=== PATIENT | male | born 1955 | race Caucasian/White ===

== ENCOUNTER → 2023-09-25 08:37 | Outpatient (REF) | payer MEDICARE, OTHER, SELFPAY | LOC: RAD 08:37 | PROVIDERS: ATTENDING PHYSICIAN Nurse Practitioner Family | DX: Z13.6 Encounter for screening for cardiovascular disorders (principal); Z79.52 Long term (current) use of systemic steroids | CPT/HCPCS: 76770; 77080 ==

== ENCOUNTER 2023-12-17 08:38 | Emergency (ER) | payer MEDICARE, OTHER, SELFPAY ==
[2023-12-17] VITALS (8 sets, daily range): BP systolic 122–150; BP diastolic 83–100; BMI 29.6
[2023-12-17 08:43] LABS: Glucose - Point of Care 127 mg/dl (70-99)
--- NOTE | 2023-12-17 08:53 | EDRN ---
Cong BARKLEY in room w/ pt at this time.
--- NOTE | 2023-12-17 09:03 | ED.GENMED ---
History of Present Illness
<FILIPPO Ballesteros - Last Filed: 12/17/23 14:35>
General
Chief Complaint: Visual Problem
Source: patient
Exam Limitations: none
Time Seen by Provider: 12/17/23 08:48
Nursing documentation reviewed up to this point in time: agreed with
History of Present Illness
History of Present Illness:
Patient is a 68-year-old male with past medical history of polymyalgia rheumatica high cholesterol presents to the ER for evaluation. He reports that 8 AM this morning he felt a sudden pain behind his left eye almost like he was' hit in the eye'
and at the same time noticed he had double vision. He was nauseous with this and sweaty. He reports since then his double vision has improved however he does still have pain behind the eye. He is nauseous. Minimally light-sensitive. He tells me
he had had ocular migraines recently but this is never been formally diagnosed. This normally however starts with seeing a dot in his visual field.
He is not on blood thinners. He denies any associated upper or lower extremity numbness tingling weakness. He denies any speech difficulty.
Past History
<FILIPPO Ballesteros - Last Filed: 12/17/23 14:35>
Past History
ED Past Medical History: GERD
ED Past Surgical History: Orthopedic (Lamenectomy)
Social History
Tobacco: Non-smoker
Alcohol: Occasional
Personal:
Living: with family
Family History
Family History: CAD
Review of Systems
<FILIPPO Ballesteros - Last Filed: 12/17/23 14:35>
Review of Systems
Allergies reviewed?: Yes
All Other Systems: ROS reviewed and negative except as documented in HPI and ROS
Constitutional: Reports no symptoms
EENT: Reports other (Pain behind left eye, double vision. Double vision has since resolved)
Respiratory: Reports no symptoms
Cardiac: Reports no symptoms
ABD/GI: Reports nausea
: Reports no symptoms
Musculoskeletal: Reports no symptoms
Skin: Reports no symptoms
Neurological: Reports headache; Denies dizzy, weakness or numbness
Psychiatric: Reports no symptoms
Phy Exam
<FILIPPO Ballesteros - Last Filed: 12/17/23 14:35>
General Physical Exam
General Presentation: no apparent distress
General age: appears stated age
General Skin: warm and dry
General Habitus: normal
General Mental: alert
General Hydration: appears well hydrated
ENT Exam
ENT Exam: EOMI, neck supple and other (No ocular palsy)
Eye Exam
Eye Exam: PERRL, EOMI and other (Minimal injection to left eye )
Eye Exam General: PERRL: bilateral and EOM intact: bilateral
Pupil Exam: Bilateral: round and reactive
Cardiovascular Exam
Cardiovascular Exam: regular rate/rhythm, no murmur and normal peripheral pulses
Pulmonary Exam
Pulmonary Exam: lungs clear and no respiratory distress
Neurological Exam
Neurological Exam: alert, oriented x3, no motor deficits and no sensory deficits
NIH Stroke Score
Level of Consciousness: 0 - Alert
LOC questions: 0-Answers both correctly
LOC Commands: 0-Performs both correctly
Best Gaze: 0-Normal
Visual [place]: 0=Normal, no visual loss
Facial palsy: 0=Normal, symmetrical
Motor - Right Arm: 0=No drift 10 seconds
Motor - Left Arm: 0=No drift 10 seconds
Motor - Right Le-No drift 5 seconds
Motor - Left Le-No drift 5 seconds
Limb Ataxia: 0-Absent
Sensation: 0-Normal
Best Language: 0-No aphasia
Dysarthria: 0-Normal
Extinction and Inattention: 0-No abnormality
Total Score:: 0
[place] Coma Scale
Eye Opening: Spontaneous
Verbal Response: Oriented
Motor Response: Obeys Commands
GCS Total Score: 15
Cerebellar
Cerebellar Function: normal finger to nose
Musculoskeletal Exam
Musculoskeletal Exam: full ROM
Skin Exam
Skin Exam: normal color and warm/dry
Psychiatric Exam
Psychiatric Exam: normal mood/affect
<Nadeem Monreal MD - Last Filed: 12/17/23 16:39>
NIH Stroke Score
Total Score:: 0
[place] Coma Scale
GCS Total Score: 15
Course
<FILIPPO Ballesteros - Last Filed: 12/17/23 14:35>
Orders/Labs/Results
Orders:
Orders
12/17/23 09:02
CT Head W/o Iv Contrast Urgent
Comment:
Reason For Exam: pain behind left eye double vision
12/17/23 09:03
Electrocardiogram (*1) Stat
Reason for Study: Abdominal Pain
Cardiac Monitoring- Treatment ONCE
EKG- Treatment ONCE
IV Insert/Care/Rem.- Treatment PRN
Ondansetron Injectable [Zofran] 4 mg IV NOW STA
12/17/23 09:12
C-Reactive Protein Urgent
Comment: ADD ON
Complete Blood Count/With Diff Urgent
Comprehensive Metabolic Panel Urgent
Sedimentation Rate [Erythrocyte Sed Rate] Urgent
12/17/23 09:51
Valproate Sodium [Depacon] 500 mg 0.9% Sodium Chloride 50 ml [Nss] 50 ml IV NOW
12/17/23 09:58
Ketorolac [Toradol] 15 mg IV NOW STA
Valproate Sodium [Depacon] 1,000 mg 0.9% Sodium Chloride 50 ml [Nss] 50 ml IV NOW
12/17/23 10:56
Add On- LAB Urgent
Comments:: tube in lab
Tests Added?: CRP (C reactive protien)
12/17/23 11:00
MethylPREDNISolone. [Solu-Medrol] 500 mg 0.9% Sodium Chloride 100 ml [Nss] 100 ml IV ONCE
12/17/23 12:26
Visual Acuity- Treatment ONCE
Abnormal Lab Results
12/17/23 12/17/23
08:41 09:12
MCH 32.2 H pg
(27.0-31.0)
ESR 21 H mm/hour
(0-20)
Glucose 127 H mg/dl
(70-99)
POC Glucose 127 H mg/dl
(70-99)
12/17/23 09:12
12/17/23 09:12
Vital Signs
Initial and Last Documented VS:
Initial Vital Signs
Temp Pulse Resp BP Pulse Ox
97.7 F 68 18 150/94 98
12/17/23 08:44 12/17/23 08:44 12/17/23 08:44 12/17/23 08:44 12/17/23 08:44
Last Documented Vital Signs
Temp Pulse Resp BP Pulse Ox
97.7 F 69 17 144/90 93
12/17/23 08:44 12/17/23 14:15 12/17/23 14:15 12/17/23 14:00 12/17/23 14:15
Director Of Digital Technology consulted with Physician
Director Of Digital Technology consulted with physician?: Yes
Name of Physician Consulted: Jocelin
<Nadeem Monreal MD - Last Filed: 12/17/23 16:39>
Orders/Labs/Results
Orders:
Orders
12/17/23 09:02
CT Head W/o Iv Contrast Urgent
Comment:
Reason For Exam: pain behind left eye double vision
12/17/23 09:03
Electrocardiogram (*1) Stat
Reason for Study: Abdominal Pain
Cardiac Monitoring- Treatment ONCE
EKG- Treatment ONCE
IV Insert/Care/Rem.- Treatment PRN
Ondansetron Injectable [Zofran] 4 mg IV NOW STA
12/17/23 09:12
C-Reactive Protein Urgent
Comment: ADD ON
Complete Blood Count/With Diff Urgent
Comprehensive Metabolic Panel Urgent
Sedimentation Rate [Erythrocyte Sed Rate] Urgent
12/17/23 09:51
Valproate Sodium [Depacon] 500 mg 0.9% Sodium Chloride 50 ml [Nss] 50 ml IV NOW
12/17/23 09:58
Ketorolac [Toradol] 15 mg IV NOW STA
Valproate Sodium [Depacon] 1,000 mg 0.9% Sodium Chloride 50 ml [Nss] 50 ml IV NOW
12/17/23 10:56
Add On- LAB Urgent
Comments:: tube in lab
Tests Added?: CRP (C reactive protien)
12/17/23 11:00
MethylPREDNISolone. [Solu-Medrol] 500 mg 0.9% Sodium Chloride 100 ml [Nss] 100 ml IV ONCE
12/17/23 12:26
Visual Acuity- Treatment ONCE
Abnormal Lab Results
12/17/23 12/17/23
08:41 09:12
MCH 32.2 H pg
(27.0-31.0)
ESR 21 H mm/hour
(0-20)
Glucose 127 H mg/dl
(70-99)
POC Glucose 127 H mg/dl
(70-99)
12/17/23 09:12
12/17/23 09:12
Vital Signs
Initial and Last Documented VS:
Initial Vital Signs
Temp Pulse Resp BP Pulse Ox
97.7 F 68 18 150/94 98
12/17/23 08:44 12/17/23 08:44 12/17/23 08:44 12/17/23 08:44 12/17/23 08:44
Last Documented Vital Signs
Temp Pulse Resp BP Pulse Ox
97.7 F 69 17 144/90 93
12/17/23 08:44 12/17/23 14:15 12/17/23 14:15 12/17/23 14:00 12/17/23 14:15
<FILIPPO Ballesteros - Last Filed: 12/17/23 14:35>
MDM/Problems Addressed
MDM/Problems Addressed:
Patient is a 68-year-old male who presents with sudden onset of pain behind his left eye with associated double vision. Patient arrived to the awake alert his double vision has improved and has no double vision on exam but does complain of a
headache behind his left eye and light sensitivity. He does have a history of migraines. He has no visual field deficit on exam no eye palsy bilaterally patient with normal finger-nose clear speech no facial droop no upper or lower extremity
numbness, tingling weakness no neurological deficits. Case discussed with Dr. Monreal Patient evaluated by neurologist CAT scan negative neurology does recommend treat with methylprednisone 500 mg and Depakote 1000 mg for migraine.
1400:Patient feeling much better. Neurology back to reassess patient. As discussed with neurology will give a prescription for Depakote 500 mg to take once as needed for migraines Will d/c with outpt neuro f/u.
<FILIPPO Ballesteros - Last Filed: 12/17/23 14:35>
*Radiology
Radiology exam reviewed: radiology read reviewed
*Pulse Oximetry
Patient hypoxic: no
*EKG
Interpreted by ED Provider?: Yes
Comparison EKG: no comparison EKG present
Heart Rate: 61
Rate: normal
Rhythm: sinus
Ischemia: no ischemia
*Critical Care Note
Total Time (30-74mins, 75-104mins- exclusive of procedures): Not Applicable
<FILIPPO Ballesteros - Last Filed: 12/17/23 14:35>
Patient Management
Discussion with other providers: Statistical Assistant (DR Henok Toussaint )
ED Attending Note
<FILIPPO Ballesteros - Last Filed: 12/17/23 14:35>
-
Portions of this chart may have been created with voice recognition software.� Occasional wrong word or��sound alike� substitutions may have occurred due to the inherent limitations of voice recognition software.
<Nadeem Monreal MD - Last Filed: 12/17/23 16:39>
ED Attending Note
Patient seen and examined by attending physician: Yes
ED Attending Note:
Patient presents to ED secondary to sudden onset of left eye pain, headache, along with nausea sensation this morning. Patient does have history of previous 'ocular migraine', but states that he does not often get headache. Along with eye pain and
headache, patient is reporting intermittent double vision, which now has resolved at the time of evaluation in the ED. Denies fever or chills. Denies dizziness. Denies loss of sensation or weakness. Denies difficulty with speech. Denies trauma.
Denies recent illness. Denies recent change in medications or diet.
Physical Exam
General: mild painful distress, not acutely ill. afebrile
Head: nc/at. eomi. no nystagmus.
Neck: supple. no meningeal signs.
Heart: s1/s2 regular rate and rhythm, no murmur. equal radial pulses.
Lungs: no acute respiratory distress. clear bilaterally
Abdomen: normal bowel sounds. not tender.
Neuro: alert and oriented. no focal neurological deficits
Skin: no rash
Psychiatric: well kept. interactive and cooperative
Extremities: no edema. no calf tenderness.
CT head: NAD.
Patient evaluated in ED by Dr. Toussaint, neurology. Recommends treatment with medications, i.e. Solu-Medrol/Depakote.
After treatment, patient reports significant warning symptoms. Patient re-evaluated by neurology, and outpatient follow-up arranged prior to discharge. Patient otherwise is afebrile, hemodynamically stable, and neurologically intact, at time of
discharge, to the care of his family.
Discharge Plan
Departure
Patient Disposition: Home (Routine Discharge)
Date of Disposition: 12/17/23
Time of Disposition: 14:23
Patient with high blood pressure during this ER visit?: Yes
Condition: Fair
Covid-19: Not Applicable
Discharge Problem:
Migraine
Instructions: Migraines (DC)
Prescriptions:
New
divalproex [Depakote] 500 mg tablet,delayed release (DR/EC)
500 mg PO ONCE PRN (Reason: headache) Qty: 14 0RF
No Action
prednisone 20 MG tablet
40 mg PO DAILY Qty: 10 0RF
ondansetron 4 MG tablet,disintegrating
4 mg PO TIDPRN PRN (Reason: spasm) Qty: 9 0RF
famotidine 20 MG tablet
20 mg PO BID Qty: 28 0RF
Rx Instructions:
Take 20 mg twice a day for 14 days
ascorbic acid (vitamin C) [Vitamin C] 500 MG tablet
1,000 mg PO BID Qty: 56 0RF
Rx Instructions:
Take 1,000 mg twice a day for 14 days
aspirin 81 MG tablet,chewable
81 mg PO DAILY Qty: 14 0RF
Rx Instructions:
Take 81 mg daily for 14 days
zinc sulfate 220 MG capsule
220 mg PO DAILY Qty: 14 0RF
Rx Instructions:
Take 220 mg daily for 14 days
cholecalciferol (vitamin D3) 1,000 UNITS tablet
2,000 units PO DAILY Qty: 28 0RF
Rx Instructions:
Take 2,000 units daily for 14 days
melatonin 5 MG tablet
5 mg PO HS Qty: 14 0RF
Rx Instructions:
Take 5 mg daily at bedtime for 14 days
Referrals:
Ahmet Jiménez CRNP [Family Provider] -
Henok Toussaint MD [Active] -
Activity Restrictions/Additional Instructions:
As discussed you were given a prescription for Depakote 500 mg to take once as needed for headache. Follow-up closely with family doctor next 2 days as well as neurology. Return if any worsening of symptoms.
Interventions
Interventions:
*Risk Screen - Suicide Last Done: 12/17/23 08:44
*General Assessment Last Done: 12/17/23 08:44
*Neglect/Abuse Screening Last Done: 12/17/23 08:44
ED- Fall Risk Assessment Last Done: 12/17/23 10:07
*ED COVID-19 Vaccine History Last Done: 12/17/23 14:59
*Nursing Disposition Last Done: 12/17/23 14:59
ED- Neurological Assessment Last Done: 12/17/23 12:27
ED-EENT Assessment Last Done: 12/17/23 09:52
ED Swallowing Screen Last Done: 12/17/23 12:28
Discharge Date and Time
Discharge Date/Time: 12/17/23 15:00
Print Language: EGYPTIAN
[2023-12-17] MEDS: ZOFRAN 4 MG IV (09:11)
[2023-12-17 09:30] LABS: % Basophils 1.2 % (0-2); % Eosinophils 3.9 % (0-6); % Immature Granulocytes 0.5 % (0-0.5); % Lymphocytes 30.9 % (20.5-51.1); % Monocytes 8.6 % (1.7-9.3); % Neutrophils 54.9 % (42.2-75.2); Absolute Basophils 0.1 10^3/uL (0-0.2); Absolute Eosinophils 0.3 10^3/uL (0-0.7); Absolute Lymphocytes 2.1 10^3/uL (1.2-3.4); Absolute Monocytes 0.6 10^3/uL (0.1-0.6); Absolute Neutrophils 3.7 10^3/uL (1.4-6.5); Hematocrit 43.1 % (39.0-52.0); Hemoglobin 15.6 g/dL (13.0-18.0); Mean Corp Hgb Conc. 36.2 g/dL (33.0-37.0); Mean Corpuscular Hgb 32.2 pg (27.0-31.0); Mean Platelet Volume 9.2 fL (7.4-10.4); Nucleated Red Blood Cells % 0 % (-); Platelet Count 227 10^3/uL (130-400); Red Blood Cell Count 4.84 10^6/uL (4.70-6.10); Red Cell Dist. Width 12.5 % (11.5-14.5); White Blood Cell Count 6.7 10^3/uL (4.8-10.8)
--- NOTE | 2023-12-17 09:40 | EDRN ---
Neurologist Dr. Henok Toussaint in room w/ pt at this time.
[2023-12-17 09:43] LABS: ALT (SGPT) 36 U/L (0-50); AST (SGOT) 36 U/L (17-59); Albumin 4.4 g/dl (3.5-5.0); Alkaline Phosphatase 78 U/L (38-126); Blood Urea Nitrogen 19 mg/dl (9-20); Calcium 9.4 mg/dl (8.4-10.2); Carbon Dioxide 25 mmol/L (22-30); Chloride 107 mmol/L (98-107); Glucose 127 mg/dl (70-99); Potassium 3.7 mmol/L (3.5-5.1); Sodium 139 mmol/L (135-145); Total Bilirubin 0.5 mg/dl (0.2-1.3); Total Protein 6.6 g/dl (6.3-8.2); eGFR > 60.00
--- NOTE | 2023-12-17 10:01 | EDRN ---
Pharmacy called and is mixing and preparing meds at this time.
[2023-12-17] MEDS: TORADOL 15 MG IV (10:35)
[2023-12-17] MEDS: DEPACON 60 MG IV (10:42)
[2023-12-17 10:50] LABS: Erythrocyte Sed Rate 21 mm/hour (0-20)
[2023-12-17] MEDS: SOLU-MEDROL 108 MG IV (12:17)
--- NOTE | 2023-12-17 12:29 | EDRN ---
Pt uncovered his eyes and still had sl vertical double vision.
--- NOTE | 2023-12-17 14:00 | EDRN ---
Dr. Toussaint in room w/ pt at this time. (neurologist)
--- NOTE | 2023-12-17 14:01 | EDRN ---
Pt states double vision is completely gone, no nausea, only sl pain at this time.
--- NOTE | 2023-12-17 14:02 | EDRN ---
Pt also states at this time along w/ no double vision, no nausea and minimal pain and no sweating, pt has no light sensitivity at this time.
[2023-12-17 15:27] LABS: C-Reactive Protein < 5.00 mg/L (0.0-10.00)
== END 2023-12-17 15:00 | disposition home or self-care (01) ==
LOC: EMR 08:38
PROVIDERS: Nurse Practitioner; EMERGENCY PHYSICIAN Emergency Medicine; FAMILY PHYSICIAN Nurse Practitioner Family
DX: G43.909 Migraine, unspecified, not intractable, without status migrainosus (principal); E78.00 Pure hypercholesterolemia, unspecified
CPT/HCPCS: 99285; 96365; 96375 ×3; 70450; 80053; 82962; 85025; 85652; 86140; 93005

== ENCOUNTER → 2024-10-26 12:18 | Outpatient (REF) | payer MEDICARE, OTHER, SELFPAY | LOC: SDSPAT 12:18 | PROVIDERS: ATTENDING PHYSICIAN Surgery; FAMILY PHYSICIAN Nurse Practitioner Family | DX: K40.90 Unilateral inguinal hernia, without obstruction or gangrene, not specified as recurrent (principal) | CPT/HCPCS: 36415; 93005 ==

== ENCOUNTER 2024-11-02 06:28 | Day surgery (SDC) | payer MEDICARE, OTHER, SELFPAY ==
[2024-10-26 13:02] VITALS: BMI 27.9
[2024-11-02] VITALS (11 sets, daily range): BP systolic 83–142; BP diastolic 58–89; BMI 27.9
[2024-11-02] MEDS: TYLENOL 1000 MG PO (08:31)
[2024-11-02] MEDS: NORMOSOL-R/PLASMALYTE-A 1000 IV (08:33)
[2024-11-02] MEDS: HEPARIN 5000 UNITS SC (08:33)
--- NOTE | 2024-11-02 10:24 | OR.RPT ---
Operative Report
Operative Report
Primary Surgeon: Cindy
Assisting: Joana
Pre-op Diagnosis: Right inguinal hernia
Post-op Diagnosis: Same
Procedure Performed: Robot assisted laparoscopic repair right inguinal hernia
Anesthesia Type: GETA
Specimen / Cultures: None
Estimated Blood Loss: 5cc
Complications: None immediate
Operative Findings: Direct defect, pseudosac everted, XL MID 3D max; left side inspected, no obvious defect
Date of Surgery: 11/02/24
Indications: This 69M developed symptomatic right inguinal hernia. Robot assisted laparoscopic repair was elected
Description of procedure:� The patient was taken to the operating room and positioned into supine position. The patient�s abdomen was prepped and draped in standard sterile fashion. A time-out was completed verifying correct patient, procedure,
site, positioning, and implants and special equipment prior to beginning this procedure. The hernia was manually reduced.
A stab incision was made in the left upper quadrant, a Veress needle was inserted and proper position was confirmed by aspiration and saline drop test. Following this, pneumoperitoneum was created with insufflation of carbon dioxide to 12 mmHg. Then
a 8mm robotic trocar was inserted above and to the left of the umbilicus. A laparoscope was inserted and the area of initial trocar entry and Veress needle placement were both inspected and no injuries were found. Two 8mm trocars were then placed
lateral to the rectus sheath under direct visualization.
Both inguinal regions were inspected and the median umbilical ligament, medial umbilical ligament, and lateral umbilical fold were identified. No defect identified on left side. Attention was turned to the right groin. The peritoneum was incised
transversely above the defect and a flap was developed in the caudad direction. Benjamin�s ligament was identified ultimately dissected to its junction with the iliac vein and the space of Retzius was developed bluntly. The dissection was continued
inferiorly to the iliopubic tract, with care taken to avoid injury to the femoral branch of the genitofemoral nerve and the lateral femoral cutaneous nerve. The cord structures were parietalized.
The direct space was inspected and a hernia defect was identified and reduced by gentle traction. The pseudosac was everted and secured to Benjamin's ligament with 2-0 vicryl suture.. The femoral space was inspected and no defect was identified. The
indirect space was inspected and a no hernia defect was identified. The canal was inspected and a moderate cord lipoma was identified and reduced.
Extra large right MID 3D max mesh was passed through a trocar. The mesh was placed into the preperitoneal space and moved into position to lay flat and completely cover the direct, indirect, and femoral spaces with overlap at the midline. The mesh
was secured into place using 2-0 vicryl suture to Benjamin�s ligament medially and laterally. Care was taken to avoid the inferolateral triangles containing the iliac vessels and genital nerves. The peritoneal flap was closed over the mesh and secured
with 2-0 monocryl stratafix suture in similar positions of safety. A large flap rent at the hernia sac was closed with 2-0 monocryl stratatfix suture. A 14g angiocath was used to decompress the preperitoneal space revealing good seal and all mesh in
good position without folding or curling.
After ensuring adequate hemostasis, the trocars were removed and the pneumoperitoneum allowed to escape. The trocar incisions were closed at the skin level using 4-0 monocryl and topical skin adhesive. All counts were correct and the patient
tolerated the procedure well and was taken to the postanesthesia care unit in stable condition.
[2024-11-02] MEDS: SUBLIMAZE 25 MCG IV ×2 (10:52→11:00)
== END 2024-11-02 13:15 | disposition home or self-care (01) ==
LOC: SDS 06:28
PROVIDERS: ATTENDING PHYSICIAN Surgery
DX: K40.90 Unilateral inguinal hernia, without obstruction or gangrene, not specified as recurrent (principal)
CPT/HCPCS: 49650; C1781